=== PATIENT | female | born 1950 | race Caucasian/White ===

== ENCOUNTER 2020-03-02 16:58 | Emergency (ER) | payer MEDICARE, MEDICAID ==
[2020-03-02] MEDS ORDERED: Bacitracin Oint 1 GM U/D Packet TOP ONE (17:53)
[2020-03-02] MEDS ORDERED: Diphtheria,Pertussis(Acell),Tetanus Vaccine 0.5 ML SDV IM ONE (17:53)
[2020-03-02] MEDS ORDERED: Lidocaine 1% 30 ML SDV INJECT ONE (17:53)
--- NOTE | 2020-03-02 18:15 | EDM.PDOC ---
ED HPI GENERAL MEDICAL PROBLEM - General Chief Complaint: Laceration Stated Complaint: RIGHT HAND AND INDEX FINGER CUT Time Seen by Provider: 03/02/20 17:45 Source of Information: Reports: Patient History Limitations: Reports: No Limitations - History of Present Illness INITIAL COMMENTS - FREE TEXT/NARRATIVE: This 70 yo female patient reports to the ED with 3 lacerations to her right hand 2nd finger. The patient reports she fell into her walk in closet this morning at about 0730. The patient dressed the wounds, but they have continued to bleed throughout the day. The patient reports she does not remember when her last tetanus shot was. Onset: Today Onset Date: 03/02/20 Onset Time: 07:30 Duration: Constant Location: Reports: Upper Extremity, Right Quality: Reports: Ache Severity: Moderate Improves with: Reports: None Worsens with: Reports: None Context: Reports: Other Associated Symptoms: Reports: No Other Symptoms Right Hand Pain Score (Numeric/FACES): 5 - Related Data Allergies Allergy/AdvReac Type Severity Reaction Status Date / Time No Known Allergies Allergy Verified 03/02/20 17:29 Home Meds: Home Meds Gabapentin [Neurontin] 600 mg PO BID 03/02/20 [History] Losartan [Cozaar] 25 mg PO DAILY 03/02/20 [History] metFORMIN [Glucophage] 850 mg PO BIDMEALS 03/02/20 [History] traZODone HCl [Trazodone HCl] 50 mg PO ASDIRECTED 03/02/20 [History] Past Medical History Cardiovascular History: Reports: CAD Neurological History: Reports: Other (See Below) Other Neuro History: restless legs - Past Surgical History Musculoskeletal Surgical History: Reports: Hip Replacement Social & Family History - Tobacco Use Smoking Status *Q: Never Smoker - Caffeine Use Caffeine Use: Reports: Coffee - Recreational Drug Use Recreational Drug Use: No ED ROS GENERAL - Review of Systems Review Of Systems: Comprehensive ROS is negative, except as noted in HPI. ED EXAM, SKIN/RASH Exam: See Below Exam Limited By: No Limitations General Appearance: Alert, WD/WN, No Apparent Distress Eye Exam: Bilateral Eye: EOMI, Normal Inspection, PERRL Ears: Normal External Exam, Hearing Grossly Normal Nose: Normal Inspection, Normal Mucosa, No Blood Throat/Mouth: Normal Lips, Normal Teeth, Normal Voice Head: Atraumatic, Normocephalic Neck: Full Range of Motion Respiratory/Chest: No Respiratory Distress, Lungs Clear, Normal Breath Sounds, No Accessory Muscle Use, Chest Non-Tender Cardiovascular: Normal Peripheral Pulses, Regular Rate, Rhythm, No Edema, No Gallop, No JVD, No Murmur, No Rub (Female) Exam: Deferred Rectal (Female) Exam: Deferred Neurological: Alert, Oriented, CN II-XII Intact, Normal Cognition, Normal Gait, Normal Reflexes, No Motor/Sensory Deficits Psychiatric: Normal Affect, Normal Mood Skin: Wound/Incision (right 2nd finger laceration) Location, Skin: Upper Extremity, Right Characteristics: Linear Lymphatic: No Adenopathy ED SKIN PROCEDURES - Laceration/Wound Repair Right Proximal Digit - 2nd (Index) Appearance: Subcutaneous Distal NVT: Neuro & Vascular Intact Anesthetic Type: Local Local Anesthesia - Lidocaine (Xylocaine): 1% Plain Local Anesthetic Volume: 2cc Skin Prep: Chlorhexidine (Hibiciens) Exploration/Debridement/Repair: Wound Explored, In a Bloodless Field, No Foreign Material Found Closed with: Sutures Lac/Wound length In cm: 1.5 Suture Size: 4-0 # of Sutures: 4 Suture Type: Prolene, Interrupted, Simple Drain Placement: No Sterile Dressing Applied: Nurse Tetanus Status Addressed: Yes Complications: No Course - Vital Signs Last Recorded V/S: Last Vital Signs Temp 36.3 C 03/02/20 17:24 Pulse 95 03/02/20 17:24 Resp 14 03/02/20 17:24 BP 153/90 H 03/02/20 17:24 Pulse Ox 100 03/02/20 17:24 - Orders/Labs/Meds Orders: Active Orders 24 hr Category Date Time Status Vaccines to be Administered [RC] PER UNIT ROUTINE Care 03/02/20 17:53 Active Meds: Medications Discontinued Medications Generic Name Dose Route Start Last Admin Trade Name Freq PRN Reason Stop Dose Admin Bacitracin 1 dose 03/02/20 17:53 Bacitracin Oint 1 Gm TOP 03/02/20 17:54 ONETIME ONE Diphtheria/Tetanus/Acell Pertussis 0.5 ml 03/02/20 17:53 Adacel IM 03/02/20 17:54 .ONCE ONE Lidocaine HCl 30 ml 03/02/20 17:53 Xylocaine-Mpf 1% INJECT 03/02/20 17:54 ONETIME ONE Departure - Departure Time of Disposition: 18:12 Disposition: Home, Self-Care 01 Condition: Fair Clinical Impression: Laceration of right index finger w/o foreign body w/o damage to nail Qualifiers: Encounter type: initial encounter Qualified Code(s): S61.210A - Laceration without foreign body of right index finger without damage to nail, initial encounter - Discharge Information *PRESCRIPTION DRUG MONITORING PROGRAM REVIEWED*: Not Applicable *COPY OF PRESCRIPTION DRUG MONITORING REPORT IN PATIENT JAILENE: Not Applicable Instructions: Sutures, Miriam, or Adhesive Wound Closure, [id number], Laceration Care, Adult, [id number] Care Plan Goals: The patient was advised of the examination results during the visit. The patient's laceration margins were well approximated during the visit. The patient was encouraged to keep the wound clean and dry over the next 48 hours. The patient should have the sutures removed in 10-14 days. If the patient has any additional symptoms or concerns, the patient should either return to the emergency department or visit her primary care facility. Sepsis Event Note (ED) - Evaluation Sepsis Screening Result: No Definite Risk - Focused Exam Vital Signs: Vital Signs Temp Pulse Resp BP Pulse Ox 03/02/20 17:24 36.3 C 95 14 153/90 H 100 - My Orders Last 24 Hours: My Active Orders 03/02/20 17:53 Vaccines to be Administered [RC] PER UNIT ROUTINE - Assessment/Plan Last 24 Hours: My Active Orders 03/02/20 17:53 Vaccines to be Administered [RC] PER UNIT ROUTINE
== END 2020-03-02 18:32 | disposition home or self-care (01) ==
LOC: DL.ED 16:58
DX: S61.210A Laceration without foreign body of right index finger without damage to nail, initial encounter (principal); I25.10 Atherosclerotic heart disease of native coronary artery without angina pectoris; Z79.899 Other long term (current) drug therapy; Z23 Encounter for immunization; W26.8XXA Contact with other sharp object(s), not elsewhere classified, initial encounter
CPT/HCPCS: 12001; 90471; 90715; 99282; J2001

== ENCOUNTER 2020-08-28 08:09 | Emergency (ER) | payer MEDICARE, MEDICAID ==
--- NOTE | 2020-08-28 08:17 | EDM.PDOC ---
ED HPI GENERAL MEDICAL PROBLEM - General Chief Complaint: Lower Extremity Injury/Pain Stated Complaint: FALL, LOWER EXTREMITY INJURY Time Seen by Provider: 08/28/20 08:13 Source of Information: Reports: Patient, Old Records, RN, RN Notes Reviewed History Limitations: Reports: No Limitations - History of Present Illness INITIAL COMMENTS - FREE TEXT/NARRATIVE: Pt arrives from home by ambulance with report that she slipped an fell outside her home this morning and it her over an hour to get up and get back into her house. Once in the house she fell again and could not get up. Pt c/o pain to the Rt ankle. She states she bruised both her knees, and feels that her right prosthetic hip is "locked up". Denies head injury or LOC, neck pain, or any dizziness, syncope, or chest pain symptoms preceding the fall. Onset: Today, Sudden Duration: Constant Location: Reports: Lower Extremity, Left, Lower Extremity, Right Quality: Reports: Ache Severity: Severe Improves with: Reports: Immobilization Worsens with: Reports: Movement Associated Symptoms: Reports: No Other Symptoms - Related Data Allergies Allergy/AdvReac Type Severity Reaction Status Date / Time No Known Allergies Allergy Verified 08/28/20 08:38 Home Meds: Home Meds Gabapentin [Neurontin] 600 mg PO BID 03/02/20 [History] Losartan [Cozaar] 25 mg PO DAILY 03/02/20 [History] metFORMIN [Glucophage] 850 mg PO BIDMEALS 03/02/20 [History] traZODone HCl [Trazodone HCl] 50 mg PO ASDIRECTED 03/02/20 [History] Past Medical History Cardiovascular History: Reports: CAD Neurological History: Reports: Other (See Below) Other Neuro History: restless legs - Past Surgical History Musculoskeletal Surgical History: Reports: Hip Replacement Social & Family History - Family History Family Medical History: No Pertinent Family History - Caffeine Use Caffeine Use: Reports: Coffee - Living Situation & Occupation Living situation: Reports: Alone Occupation: Retired Review of Systems - Review of Systems Review Of Systems: Comprehensive ROS is negative, except as noted in HPI. ED EXAM, GENERAL - Physical Exam Exam: See Below Exam Limited By: No Limitations General Appearance: Alert, WD/WN, No Apparent Distress, Obese Eye Exam: Bilateral Eye: Normal Inspection Nose: Normal Inspection, Normal Mucosa, No Blood Throat/Mouth: Normal Inspection, Normal Lips, Normal Oropharynx, Normal Voice, No Airway Compromise Head: Atraumatic, Normocephalic Neck: Normal Inspection, Supple, Non-Tender, Full Range of Motion Respiratory/Chest: No Respiratory Distress, Lungs Clear, No Accessory Muscle Use, Chest Non-Tender, Decreased Breath Sounds Cardiovascular: Regular Rate, Rhythm, No Edema GI/Abdominal: Normal Bowel Sounds, Soft, Non-Tender Back Exam: Normal Inspection Extremities: Normal Capillary Refill, Leg Pain (Rt ankle with no visible swelling, bruising, or deformity, and with full ROM.), Limited Range of Motion (Rt hip with tenderness, no visible swelling, redness, or bruising.), Other (Superficial abrasions and contusion to B/L anterior knees.). No: Joint Swelling Neurological: Alert, Oriented, Normal Cognition, No Motor/Sensory Deficits Psychiatric: Normal Mood Skin Exam: Warm, Dry, Normal Color Course - Vital Signs Last Recorded V/S: Last Vital Signs Temp 97.1 F 08/28/20 08:26 Pulse 97 08/28/20 08:26 Resp 20 08/28/20 08:26 BP 148/87 H 08/28/20 08:26 Pulse Ox 100 08/28/20 08:26 - Orders/Labs/Meds Orders: Active Orders 24 hr Category Date Time Status Ja Bandage [RC] ONETIME Care 08/28/20 09:25 Active CULTURE URINE [RM] Stat Lab 08/28/20 09:18 Received Labs: Laboratory Tests 08/28/20 08/28/20 08/28/20 Range/Units 08:39 08:39 09:18 WBC 8.3 (5.0-10.0) 10^3/uL RBC 4.49 (4.2-5.4) 10^6/uL Hgb 14.5 (12.0-16.0) g/dL Hct 41.9 (37.0-47.0) % MCV 93.3 (80-100) fL MCH 32.3 (27.0-34.0) pg MCHC 34.6 (33.0-35.0) g/dL Plt Count 208 (150-450) 10^3/uL Neut % (Auto) 84.4 H (42.2-75.2) % Lymph % (Auto) 7.2 L (20.5-50.1) % [place] % (Auto) 7.9 (2-8) % Eos % (Auto) 0.4 L (1.0-3.0) % Baso % (Auto) 0.1 (0.0-1.0) % Sodium 143 (136-145) mmol/L Potassium 3.7 (3.5-5.1) mmol/L Chloride 102 (98-107) mmol/L Carbon Dioxide 29 (21-32) mmol/L Anion Gap 15.7 H (7-13) mEq/L BUN 14 (7-18) mg/dL Creatinine 0.95 (0.55-1.02) mg/dL Est Cr Clr Drug Dosing 42.34 mL/min Estimated GFR (MDRD) 58 BUN/Creatinine Ratio 14.7 (No establ ref range) Glucose 144 H (74-99) mg/dL Calcium 9.1 (8.5-10.1) mg/dL Total Bilirubin 0.4 (0.2-1.0) mg/dL AST 18 (15-37) U/L ALT 23 (14-59) U/L Alkaline Phosphatase 97 (46-116) U/L Total Protein 6.6 (6.4-8.2) g/dL Albumin 4.0 (3.4-5.0) g/dL Globulin 2.6 Albumin/Globulin Ratio 1.5 Urine Color Yellow (YELLOW) Urine Appearance Slightly cloudy (CLEAR) Urine pH 7.5 (5.0-9.0) Ur Specific [place] 1.020 (1.005-1.030) Urine Protein 30 H (NEGATIVE) Urine Glucose (UA) Negative (NEGATIVE) Urine Ketones Negative (NEGATIVE) Urine Occult Blood Trace-intact H (NEGATIVE) Urine Nitrite Negative (NEGATIVE) Urine Bilirubin Negative (NEGATIVE) Urine Urobilinogen 0.2 (0.2-1.0) mg/dL Ur Leukocyte Esterase Small H (NEGATIVE) Urine RBC 0-5 /HPF Urine WBC 0-5 (0-5/HPF) /HPF Ur Epithelial Cells Few (NOT SEEN) /HPF Urine Bacteria Few (0-FEW/HPF) /HPF Urine Other See note Meds: Medications Discontinued Medications Generic Name Dose Route Start Last Admin Trade Name Freq PRN Reason Stop Dose Admin Bacitracin 1 dose 08/28/20 08:26 08/28/20 08:49 Bacitracin Oint 1 Gm TOP 08/28/20 08:27 1 dose ONETIME ONE Administration - Radiology Interpretation Free Text/Narrative:: [facility] Final Radiology Report Call: [phone] assistance Online chat: [email or web address] Name: [email or web address] WARD Age: 70Years F Date: 08/28/2020 SSN: -- : [id number] Study: CR ANKLE MIN 3V RT Requesting Physician: MEAGAN GHOSH Images: 3 Addl Studies: Provided Clinical History: Fall x2, injury to Rt hip, B/L knees, Rt ankle Contrast: Contrast Medium: Contrast Amount: Contrast Method: CONFIDENTIALITY STATEMENT This report is intended only for use by the referring physician, and only in accordance with law. If you received this in error, call [phone]. Page 1 of 1 PROCEDURE INFORMATION: Exam: XR Right Ankle Exam date and time: 08/28/2020 8:52 AM Age: 70 years old Clinical indication: Injury or trauma; Fall; Swelling (edema); Ankle; Right; Additional info: Fall x2, injury to RT hip, b/l knees, RT ankle TECHNIQUE: Imaging protocol: XR Right ankle. Views: 3 or more views. COMPARISON: CR Ankle Min 3V Rt 08/02/2020 9:08 AM FINDINGS: Bones/joints: Small plantar calcaneal spur. Soft tissues: Soft tissue swelling about the right ankle. IMPRESSION: Soft tissue swelling about the right ankle. No fracture identified. Thank you for allowing us to participate in the care of your patient. Dictated and Authenticated by: Génesis Sharma MD 08/28/2020 9:24 AM Central Time ([place] & [place]) IMPRESSION: No acute findings in the pelvis and right hip. Right FARZAD. Thank you for allowing us to participate in the care of your patient. Dictated and Authenticated by: Génesis Sharma MD 08/28/2020 9:25 AM Central Time ([place] & [place]) IMPRESSION: No acute findings. Mild degenerative arthritis right knee with old Nuno Schlatter. IMPRESSION: No acute findings. Advanced degenerative arthritis left knee. PROCEDURE INFORMATION: Exam: XR Right Shoulder Exam date and time: 08/28/2020 9:03 AM Age: 70 years old Clinical indication: Pain; Shoulder; Right; Additional info: Fall, RT shoulder pain TECHNIQUE: Imaging protocol: XR Right shoulder. Views: 2 or more views. COMPARISON: No relevant prior studies available. FINDINGS: Bones/joints: Resection of the distal right clavicle. Acromioplasty. Marked narrowing of the acromial humeral space consistent with chronic rotator cuff arthropathy. Degenerative arthritis in the glenohumeral joint. Soft tissues: Normal. IMPRESSION: 1. No acute findings. 2. Acromioplasty, distal clavicle resection, glenohumeral degenerative arthritis and chronic rotator cuff arthropathy. Thank you for allowing us to participate in the care of your patient. Dictated and Authenticated by: Génesis Sharma MD - Re-Assessments/Exams Free Text/Narrative Re-Assessment/Exam: 08/28/20 09:29 No serious injuries, no acute lab abnormalities that would increase fall risk. Plan to d/c pt home. Pt declines pain medication. She has a walker at home, and does not feel that she can use crutches. Departure - Departure Time of Disposition: 09:31 Disposition: Home, Self-Care 01 Condition: Fair Clinical Impression: Contusion, multiple sites, Abrasion of both knees Right ankle sprain Qualifiers: Encounter type: initial encounter Involved ligament of ankle: unspecified ligament Qualified Code(s): S93.401A - Sprain of unspecified ligament of right ankle, initial encounter Fall as cause of accidental injury at home as place of occurrence Qualifiers: Encounter type: initial encounter Qualified Code(s): W19.XXXA - Unspecified fall, initial encounter - Discharge Information *PRESCRIPTION DRUG MONITORING PROGRAM REVIEWED*: Not Applicable *COPY OF PRESCRIPTION DRUG MONITORING REPORT IN PATIENT JAILENE: Not Applicable Instructions: Ankle Sprain, [id number], Abrasion, [id number] Forms: ED Department Discharge Additional Instructions: Use your walker for stability. Activity as tolerated. Use Tylenol (Acetaminophen) or Ibuprofen (Motrin/Advil) as needed for pain. Follow directions on label for dosing and precautions. Follow up in clinic if needed. Sepsis Event Note (ED) - Focused Exam Vital Signs: Vital Signs Temp Pulse Resp BP Pulse Ox 08/28/20 08:26 97.1 F 97 20 148/87 H 100 - My Orders Last 24 Hours: My Active Orders 08/28/20 09:18 CULTURE URINE [RM] Stat 08/28/20 09:25 Ja Bandage [RC] ONETIME - Assessment/Plan Last 24 Hours: My Active Orders 08/28/20 09:18 CULTURE URINE [RM] Stat 08/28/20 09:25 Ja Bandage [RC] ONETIME
[2020-08-28] MEDS ORDERED: Bacitracin Oint 1 GM U/D Packet TOP ONE (08:26)
[2020-08-28 09:04] LABS: ANION GAP 15.7 mEq/L (7-13)
--- NOTE | 2020-08-28 09:24 | CR ---
PROCEDURE INFORMATION: Exam: XR Right Ankle Exam date and time: 08/28/2020 8:52 AM Age: 70 years old Clinical indication: Injury or trauma; Fall; Swelling (edema); Ankle; Right; Additional info: Fall x2, injury to RT hip, b/l knees, RT ankle TECHNIQUE: Imaging protocol: XR Right ankle. Views: 3 or more views. COMPARISON: CR Ankle Min 3V Rt 08/02/2020 9:08 AM FINDINGS: Bones/joints: Small plantar calcaneal spur. Soft tissues: Soft tissue swelling about the right ankle. IMPRESSION: Soft tissue swelling about the right ankle. No fracture identified.
--- NOTE | 2020-08-28 09:24 | CR ---
PROCEDURE INFORMATION: Exam: XR Right Shoulder Exam date and time: 08/28/2020 9:03 AM Age: 70 years old Clinical indication: Pain; Shoulder; Right; Additional info: Fall, RT shoulder pain TECHNIQUE: Imaging protocol: XR Right shoulder. Views: 2 or more views. COMPARISON: No relevant prior studies available. FINDINGS: Bones/joints: Resection of the distal right clavicle. Acromioplasty. Marked narrowing of the acromial humeral space consistent with chronic rotator cuff arthropathy. Degenerative arthritis in the glenohumeral joint. Soft tissues: Normal. IMPRESSION: 1. No acute findings. 2. Acromioplasty, distal clavicle resection, glenohumeral degenerative arthritis and chronic rotator cuff arthropathy.
--- NOTE | 2020-08-28 09:26 | CR ---
PROCEDURE INFORMATION: Exam: XR Right Hip with Pelvis when Performed Exam date and time: 08/28/2020 8:54 AM Age: 70 years old Clinical indication: Injury or trauma; Fall; Blunt trauma (contusions or hematomas); Right; Hip; Prior surgery; Surgery date: 6+ months; Additional info: Fall x2, injury to RT hip, b/l knees, RT ankle TECHNIQUE: Imaging protocol: XR Right hip with pelvis when performed. Views: 2 or 3 views. COMPARISON: CR Hip Min 2V or 3V Rt 05/21/2018 2:27 PM FINDINGS: Bones/joints: Stable right hip arthroplasty with focal lucency in the supra-acetabular ilium. The components otherwise appear well seated. No fracture identified. Degenerative arthritis lower lumbar spine. Soft tissues: Unremarkable. IMPRESSION: No acute findings in the pelvis and right hip. Right FARZAD.
--- NOTE | 2020-08-28 09:27 | CR ---
PROCEDURE INFORMATION: Exam: XR Left Knee Exam date and time: 08/28/2020 9:00 AM Age: 70 years old Clinical indication: Injury or trauma; Fall; Blunt trauma; Knee; Bilateral; Additional info: Fall x2, injury to RT hip, b/l knees, RT ankle TECHNIQUE: Imaging protocol: XR Left knee. Views: 3 views. COMPARISON: No relevant prior studies available. FINDINGS: Bones/joints: Degenerative arthritis left knee with tricompartment joint space narrowing and marginal osteophyte formation, most marked involving the patellofemoral. Fragment of heterotopic ossification lateral to the left patellofemoral joint. Soft tissues: Normal. IMPRESSION: No acute findings. Advanced degenerative arthritis left knee.
--- NOTE | 2020-08-28 09:27 | CR ---
PROCEDURE INFORMATION: Exam: XR Right Knee Exam date and time: 08/28/2020 8:57 AM Age: 70 years old Clinical indication: Injury or trauma; Fall; Blunt trauma; Knee; Bilateral; Additional info: Fall x2, injury to RT hip, b/l knees, RT ankle TECHNIQUE: Imaging protocol: XR Right knee. Views: 3 views. COMPARISON: No relevant prior studies available. FINDINGS: Bones/joints: Narrowed medial compartment. Tiny tricompartment marginal osteophytes. Old Nuno-Schlatter. Soft tissues: Normal. IMPRESSION: No acute findings. Mild degenerative arthritis right knee with old Radford Schlatter.
== END 2020-08-28 10:30 | disposition home or self-care (01) ==
LOC: DL.ED 08:09
DX: S93.401A Sprain of unspecified ligament of right ankle, initial encounter (principal); S80.02XA Contusion of left knee, initial encounter; S80.01XA Contusion of right knee, initial encounter; I25.10 Atherosclerotic heart disease of native coronary artery without angina pectoris; Z79.899 Other long term (current) drug therapy; W01.0XXA Fall on same level from slipping, tripping and stumbling without subsequent striking against object, initial encounter; Y92.009 Unspecified place in unspecified non-institutional (private) residence as the place of occurrence of the external cause
CPT/HCPCS: 36415; 73030-RT; 73562-LT; 73562-RT; 73610-RT; 80053; 81001; 85025; 87086; 99283; 99284-25

== ENCOUNTER 2021-02-17 07:16 | Emergency (ER) | payer MEDICARE, MEDICAID ==
--- NOTE | 2021-02-17 07:40 | EDM.PDOC ---
ED HPI GENERAL MEDICAL PROBLEM - General Stated Complaint: [id number] FELL ON RIGHT SIDE AND CANT SIT OR STAND Time Seen by Provider: 02/17/21 07:29 Source of Information: Reports: Patient, RN, RN Notes Reviewed History Limitations: Reports: No Limitations - History of Present Illness INITIAL COMMENTS - FREE TEXT/NARRATIVE: Krzysztof is a 70 y/o female who presents to the ED via personal vehicle with complaints of right hip pain. The patient reports she fell onto her right hip yesterday and is not unable to ambulate or sit without pain. The patient denies striking her head and did not lose consciousness. She denies loss of motor or sensory function to the extremity. The patient reports a history of right hip replacement and is concerned she damaged the hardware. She has taken one dose of Aleve this morning which has offered her minimal improvement in pain. Right Hip Pain Score (Numeric/FACES): 4 - Related Data Allergies Allergy/AdvReac Type Severity Reaction Status Date / Time No Known Allergies Allergy Verified 02/17/21 07:32 Home Meds: Home Meds Gabapentin [Neurontin] 600 mg PO BID 03/02/20 [History] Losartan [Cozaar] 25 mg PO DAILY 03/02/20 [History] metFORMIN [Glucophage] 850 mg PO BIDMEALS 03/02/20 [History] traZODone HCl [Trazodone HCl] 50 mg PO ASDIRECTED 03/02/20 [History] Past Medical History Cardiovascular History: Reports: CAD Neurological History: Reports: Other (See Below) Other Neuro History: restless legs Endocrine/Metabolic History: Reports: Diabetes, Type II - Past Surgical History Musculoskeletal Surgical History: Reports: Hip Replacement Social & Family History - Family History Family Medical History: No Pertinent Family History - Caffeine Use Caffeine Use: Reports: Coffee - Living Situation & Occupation Living situation: Reports: Alone Occupation: Retired Review of Systems - Review of Systems Review Of Systems: Comprehensive ROS is negative, except as noted in HPI. ED EXAM, GENERAL - Physical Exam Exam: See Below Exam Limited By: No Limitations General Appearance: Alert, No Apparent Distress Eye Exam: Bilateral Eye: EOMI, Normal Inspection, PERRL (3mm) Ears: Normal External Exam, Hearing Loss Nose: Normal Inspection, Normal Mucosa, No Blood Throat/Mouth: Normal Inspection, Normal Lips, Normal Teeth, Normal Gums, Normal Oropharynx, Normal Voice, No Airway Compromise Head: Atraumatic, Normocephalic Neck: Normal Inspection, Supple, Non-Tender, Full Range of Motion Respiratory/Chest: No Respiratory Distress, Lungs Clear, Normal Breath Sounds, No Accessory Muscle Use, Chest Non-Tender Cardiovascular: Normal Peripheral Pulses, Regular Rate, Rhythm, No Edema, No Gallop, No JVD, No Murmur, No Rub Peripheral Pulses: 2+: Radial (L), Radial (R) GI/Abdominal: Normal Bowel Sounds, Soft, Non-Tender, No Distention, No Abnormal Bruit, No Mass (Female) Exam: Deferred Rectal (Female) Exam: Deferred Back Exam: Normal Inspection, Full Range of Motion Extremities: No Pedal Edema, Normal Capillary Refill, Leg Pain (Right hip pain), Limited Range of Motion (To right lower extremity). No: Increased Warmth, Pallor, Redness Neurological: Alert, Oriented, CN II-XII Intact, Normal Cognition, No Motor/Sensory Deficits, Abnormal Gait (Hunched gait with walker) Psychiatric: Normal Affect, Normal Mood Skin Exam: Warm, Dry, Intact, Normal Color, No Rash. No: Cyanosis, Ecchymosis, Erythema, Increased Warmth, Jaundice, Mottled, Pallor, Petechiae Course - Vital Signs Last Recorded V/S: Last Vital Signs Temp 97.6 F 02/17/21 07:30 Pulse 75 02/17/21 07:30 Resp 18 02/17/21 07:30 BP 139/75 02/17/21 07:30 Pulse Ox 100 02/17/21 07:30 - Radiology Interpretation Free Text/Narrative:: [facility] Final Radiology Report Call: [phone] assistance Online chat: [email or web address] Name: KRZYSZTOF WARD Age: 70Years F Date: 02/17/2021 SSN: -- : [id number] Study: CR HIP MIN 2V OR 3V W PELVIS RT Requesting Physician: Selena Gardner Images: 3 Addl Studies: Provided Clinical History: Fall onto hip yesterday; Pain with walking/sitting Contrast: Contrast Medium: Contrast Amount: Contrast Method: CONFIDENTIALITY STATEMENT This report is intended only for use by the referring physician, and only in accordance with law. If you received this in error, call [phone]. Page 1 of 1 PROCEDURE INFORMATION: Exam: XR Right Hip Exam date and time: 02/17/2021 7:43 AM Age: 70 years old Clinical indication: Injury or trauma; Fall; Blunt trauma (contusions or hematomas); Right; Hip; Injury date: 02-16-21; Prior surgery; Surgery date: 6+ months; Additional info: Fall onto hip yesterday; Pain with walking/sitting TECHNIQUE: Imaging protocol: XR Right hip. Views: 2 or 3 views hip with pelvis when performed. COMPARISON: CR Hip Min 2V or 3V w Pelvis Rt 08/28/2020 8:54 AM FINDINGS: Tubes, catheters and devices: Hardware is intact without evidence of migration or loosening. Bones/joints: Status post right hip arthroplasty. Soft tissues: Unremarkable. IMPRESSION: No definite acute fractures. Thank you for allowing us to participate in the care of your patient. Dictated and Authenticated by: Edy Pompa MD 02/17/2021 9:03 AM Central Time ([place] & [place]) - Re-Assessments/Exams Free Text/Narrative Re-Assessment/Exam: 02/17/21 Xray of right hip and pelvis obtained. Patient rates pain at a 3 and does not want pain medication. Findings of examination and imaging reviewed with patient. Discussed supportive cares for right hip pain. Red flag signs and symptoms which would warrant reevaluation reviewed. Patient verbalized understanding and agreement with the plan of care. Departure - Departure Time of Disposition: 09:14 Disposition: Home, Self-Care 01 Condition: Good Clinical Impression: Right hip pain, Fall from ground level - Discharge Information *PRESCRIPTION DRUG MONITORING PROGRAM REVIEWED*: Not Applicable *COPY OF PRESCRIPTION DRUG MONITORING REPORT IN PATIENT JAILENE: Not Applicable Instructions: Fall Prevention in the Home, Adult, [id number], Hip Pain Forms: ED Department Discharge Additional Instructions: 1.) You may take acetaminophen (Tylenol) 1000mg every six hours, as pain persists, in addition to the Naproxen. 2.) You may alternate heat and ice to the affected area, as swelling persists; 20 minutes on every hour. 3.) Follow up with primary care provider, or return to the emergency room, that worsens or does not improve within 7 days.
--- NOTE | 2021-02-17 09:04 | CR ---
PROCEDURE INFORMATION: Exam: XR Right Hip Exam date and time: 02/17/2021 7:43 AM Age: 70 years old Clinical indication: Injury or trauma; Fall; Blunt trauma (contusions or hematomas); Right; Hip; Injury date: 02-16-21; Prior surgery; Surgery date: 6+ months; Additional info: Fall onto hip yesterday; Pain with walking/sitting TECHNIQUE: Imaging protocol: XR Right hip. Views: 2 or 3 views hip with pelvis when performed. COMPARISON: CR Hip Min 2V or 3V w Pelvis Rt 08/28/2020 8:54 AM FINDINGS: Tubes, catheters and devices: Hardware is intact without evidence of migration or loosening. Bones/joints: Status post right hip arthroplasty. Soft tissues: Unremarkable. IMPRESSION: No definite acute fractures.
== END 2021-02-17 09:24 | disposition home or self-care (01) ==
LOC: DL.ED 07:16
DX: M25.551 Pain in right hip (principal); I25.10 Atherosclerotic heart disease of native coronary artery without angina pectoris; E11.9 Type 2 diabetes mellitus without complications; Z79.84 Long term (current) use of oral hypoglycemic drugs; Z79.899 Other long term (current) drug therapy; W18.39XA Other fall on same level, initial encounter
CPT/HCPCS: 99283-25

== ENCOUNTER 2021-04-16 08:45 | Emergency (ER) | payer MEDICARE, MEDICAID ==
--- NOTE | 2021-04-16 09:01 | EDM.PDOC ---
"ED HPI GENERAL MEDICAL PROBLEM - General Chief Complaint: Neurological Problem Stated Complaint: POSSIBLE STROKE [id number] Time Seen by Provider: 04/16/21 08:50 Source of Information: Reports: Patient, Provider (Care staff), RN, RN Notes Reviewed History Limitations: Reports: Other (Confusion) - History of Present Illness INITIAL COMMENTS - FREE TEXT/NARRATIVE: Krzysztof is a 71 y/o female who presents to the ED via personal vehicle with complaints of confusion, per care staff. The patient lives alone and has care staff assist with shopping, cooking, and light cleaning; she reports the patient has been in [place] for the last two weeks and returned home two nights ago. She reports the patient's son yesterday at some time, so she is uncertain of the patient's LKW. She reports the patient was sitting in her recliner this morning unsure of how to operate her cell phone and remote, which is not the patient's baseline. Additionally, she feels her speech is slurred and her gait is slow. Headache Pain Score (Numeric/FACES): 6 - Related Data Allergies Allergy/AdvReac Type Severity Reaction Status Date / Time No Known Allergies Allergy Verified 04/16/21 10:57 Home Meds: Home Meds Gabapentin [Neurontin] 600 mg PO BID 03/02/20 [History] Losartan [Cozaar] 25 mg PO DAILY 03/02/20 [History] metFORMIN [Glucophage] 850 mg PO BIDMEALS 03/02/20 [History] traZODone HCl [Trazodone HCl] 50 mg PO ASDIRECTED 03/02/20 [History] Past Medical History HEENT History: Reports: Impaired Vision Cardiovascular History: Reports: CAD Respiratory History: Reports: None Gastrointestinal History: Reports: None Genitourinary History: Reports: None LOG INSPECTOR History: Reports: None Neurological History: Reports: Other (See Below) Other Neuro History: restless legs Psychiatric History: Reports: None Endocrine/Metabolic History: Reports: Diabetes, Type II Hematologic History: Reports: None Immunologic History: Reports: None Oncologic (Cancer) History: Reports: None Dermatologic History: Reports: None - Infectious Disease History Infectious Disease History: Reports: None - Past Surgical History Head Surgeries/Procedures: Reports: None Musculoskeletal Surgical History: Reports: Hip Replacement Social & Family History - Family History Family Medical History: No Pertinent Family History - Tobacco Use Tobacco Use Status *Q: Never Tobacco User - Caffeine Use Caffeine Use: Reports: Coffee - Recreational Drug Use Drug Use in Last 12 Months: No - Living Situation & Occupation Living situation: Reports: Alone Occupation: Retired ED ROS GENERAL - Review of Systems Review Of Systems: Comprehensive ROS is negative, except as noted in HPI. ED EXAM, NEURO - Physical Exam Exam: See Below Exam Limited By: No Limitations General Appearance: Alert, No Apparent Distress Eye Exam: Bilateral Eye: EOMI, Normal Inspection, PERRL (3mm) Ears: Normal External Exam, Normal Canal, Hearing Grossly Normal, Normal TMs Nose: Normal Inspection, Normal Mucosa, No Blood Throat/Mouth: Normal Voice, No Airway Compromise. No: Normal Oropharynx (Dry mucous membranes) Head Exam: Atraumatic, Normocephalic Neck: Normal Inspection, Supple, Non-Tender, Full Range of Motion. No: Lymphadenopathy (L), Lymphadenopathy (R) Respiratory/Chest: No Respiratory Distress, Lungs Clear, Normal Breath Sounds, No Accessory Muscle Use, Chest Non-Tender Cardiovascular: Normal Peripheral Pulses, No Edema, No Gallop, No JVD, No Murmur, No Rub, Tachycardia GI/Abdominal: Normal Bowel Sounds, Soft, Non-Tender, No Distention, No Abnormal Bruit, No Mass, Pelvis Stable (Female) Exam: Deferred Rectal (Female) Exam: Deferred Neurological: Alert, Normal Dorsiflexion, Normal Plantar Flexion, Abnormal Gait (Slow, shufflin gait), Withdraws to Pain, Straight Leg Raise (L), Straight Leg Raise (R). No: Abnormal Finger to Nose, Abnormal Sensation, Abnormal Light Touch, Abnormal Motor, Abnormal Pin Prick, Abn 2 Pt Discrimination Back Exam: Normal Inspection, Full Range of Motion Extremities: Normal Inspection, Normal Range of Motion, Non-Tender, No Pedal Edema, Normal Capillary Refill Psychiatric: Normal Affect, Normal Mood Skin Exam: Warm, Dry, Intact, Normal Color, No Rash. No: Cyanosis, Ecchymosis, Erythema, Jaundice, Mottled, Pallor, Petechiae #1 Interpretation EKG Date: 04/16/21 Time: 09:11 Rhythm: Other (Sinus tachycardia) Rate (Beats/Min): 103 Clinton: LAD-Left Clinton Deviation P-Wave: Present QRS: Normal ST-T: Normal QT: Normal VA/PQ Interval: 0.154 Comparison: NA - No Prior EKG EKG Interpretation Comments: ST; LAD; No evidence of acute myocardial ischemia Course - Vital Signs Last Recorded V/S: Last Vital Signs Temp 98.4 F 04/16/21 09:04 Pulse 103 H 04/16/21 09:04 Resp 24 H 04/16/21 09:04 BP 112/84 04/16/21 09:04 Pulse Ox 94 L 04/16/21 09:04 - Orders/Labs/Meds Orders: Active Orders 24 hr Category Date Time Status CULTURE BLOOD [BC] Stat Lab 04/16/21 10:13 Received CULTURE URINE [RM] Stat Lab 04/16/21 09:33 Results Labs: Laboratory Tests 04/16/21 04/16/21 04/16/21 Range/Units 08:53 09:07 09:07 WBC 20.0 H (5.0-10.0) 10^3/uL RBC 4.52 (4.2-5.4) 10^6/uL Hgb 14.3 (12.0-16.0) g/dL Hct 41.8 (37.0-47.0) % MCV 92.5 (80-100) fL MCH 31.6 (27.0-34.0) pg MCHC 34.2 (33.0-35.0) g/dL Plt Count 213 (150-450) 10^3/uL Neut % (Auto) 88.7 H (42.2-75.2) % Lymph % (Auto) 4.0 L (20.5-50.1) % [place] % (Auto) 7.3 (2-8) % Eos % (Auto) 0.0 L (1.0-3.0) % Baso % (Auto) 0.0 (0.0-1.0) % Sodium 134 L (136-145) mmol/L Potassium 3.5 (3.5-5.1) mmol/L Chloride 96 L (98-107) mmol/L Carbon Dioxide 28 (21-32) mmol/L Anion Gap 13.5 H (7-13) mEq/L BUN 13 (7-18) mg/dL Creatinine 0.94 (0.55-1.02) mg/dL Est Cr Clr Drug Dosing TNP Estimated GFR (MDRD) 58 BUN/Creatinine Ratio 13.8 (No establ ref range) Glucose 168 H (70-99) mg/dL POC Glucose 171 H (70-99) mg/dL Lactic Acid (0.4-2.0) mmol/L Calcium 9.0 (8.5-10.1) mg/dL Magnesium 1.6 L (1.8-2.4) mg/dL Total Bilirubin 0.9 (0.2-1.0) mg/dL AST 28 (15-37) U/L ALT 30 (14-59) U/L Alkaline Phosphatase 84 (46-116) U/L Troponin I High Sens 7 (<=51) pg/mL C-Reactive Protein > 36.0 H (0.0-0.9) mg/dL B-Natriuretic Peptide 120 H (0-100) pg/ml Total Protein 6.3 L (6.4-8.2) g/dL Albumin 3.3 L (3.4-5.0) g/dL Globulin 3.0 Albumin/Globulin Ratio 1.10 Urine Color (YELLOW) Urine Appearance (CLEAR) Urine pH (5.0-9.0) Ur Specific [place] (1.005-1.030) Urine Protein (NEGATIVE) Urine Glucose (UA) (NEGATIVE) Urine Ketones (NEGATIVE) Urine Occult Blood (NEGATIVE) Urine Nitrite (NEGATIVE) Urine Bilirubin (NEGATIVE) Urine Urobilinogen (0.2-1.0) mg/dL Ur Leukocyte Esterase (NEGATIVE) Urine RBC (0-5) /HPF Urine WBC (0-5/HPF) /HPF Ur Epithelial Cells (NOT SEEN) /HPF Amorphous Sediment (NOT SEEN) /HPF Urine Bacteria (0-FEW/HPF) /HPF Urine Mucus (NOT SEEN) /LPF Urine Opiates Screen (NEGATIVE) Ur Oxycodone Screen (NEGATIVE) Urine Methadone Screen (NEGATIVE) Ur Barbiturates Screen (NEGATIVE) U Tricyclic Antidepress (NEGATIVE) Ur Phencyclidine Scrn (NEGATIVE) Ur Amphetamine Screen (NEGATIVE) U Methamphetamines Scrn (NEGATIVE) Urine MDMA Screen (NEGATIVE) U Benzodiazepines Scrn (NEGATIVE) Urine Cocaine Screen (NEGATIVE) U Marijuana (THC) Screen (NEGATIVE) Ethyl Alcohol < 3 (0) mg/dL 04/16/21 04/16/21 04/16/21 Range/Units 09:07 09:33 09:33 WBC (5.0-10.0) 10^3/uL RBC (4.2-5.4) 10^6/uL Hgb (12.0-16.0) g/dL Hct (37.0-47.0) % MCV (80-100) fL MCH (27.0-34.0) pg MCHC (33.0-35.0) g/dL Plt Count (150-450) 10^3/uL Neut % (Auto) (42.2-75.2) % Lymph % (Auto) (20.5-50.1) % [place] % (Auto) (2-8) % Eos % (Auto) (1.0-3.0) % Baso % (Auto) (0.0-1.0) % Sodium (136-145) mmol/L Potassium (3.5-5.1) mmol/L Chloride (98-107) mmol/L Carbon Dioxide (21-32) mmol/L Anion Gap (7-13) mEq/L BUN (7-18) mg/dL Creatinine (0.55-1.02) mg/dL Est Cr Clr Drug Dosing Estimated GFR (MDRD) BUN/Creatinine Ratio (No establ ref range) Glucose (70-99) mg/dL POC Glucose (70-99) mg/dL Lactic Acid 1.8 (0.4-2.0) mmol/L Calcium (8.5-10.1) mg/dL Magnesium (1.8-2.4) mg/dL Total Bilirubin (0.2-1.0) mg/dL AST (15-37) U/L ALT (14-59) U/L Alkaline Phosphatase (46-116) U/L Troponin I High Sens (<=51) pg/mL C-Reactive Protein (0.0-0.9) mg/dL B-Natriuretic Peptide (0-100) pg/ml Total Protein (6.4-8.2) g/dL Albumin (3.4-5.0) g/dL Globulin Albumin/Globulin Ratio Urine Color Dark yellow (YELLOW) Urine Appearance Slightly cloudy (CLEAR) Urine pH 6.0 (5.0-9.0) Ur Specific Fancy Gap >= 1.030 (1.005-1.030) Urine Protein 100 H (NEGATIVE) Urine Glucose (UA) Negative (NEGATIVE) Urine Ketones 15 H (NEGATIVE) Urine Occult Blood Negative (NEGATIVE) Urine Nitrite Negative (NEGATIVE) Urine Bilirubin Small H (NEGATIVE) Urine Urobilinogen 1.0 (0.2-1.0) mg/dL Ur Leukocyte Esterase Small H (NEGATIVE) Urine RBC 0-5 (0-5) /HPF Urine WBC 50-75 H (0-5/HPF) /HPF Ur Epithelial Cells Moderate H (NOT SEEN) /HPF Amorphous Sediment Few (NOT SEEN) /HPF Urine Bacteria Many H (0-FEW/HPF) /HPF Urine Mucus Few H (NOT SEEN) /LPF Urine Opiates Screen Negative (NEGATIVE) Ur Oxycodone Screen Negative (NEGATIVE) Urine Methadone Screen Negative (NEGATIVE) Ur Barbiturates Screen Negative (NEGATIVE) U Tricyclic Antidepress Negative (NEGATIVE) Ur Phencyclidine Scrn Negative (NEGATIVE) Ur Amphetamine Screen Negative (NEGATIVE) U Methamphetamines Scrn Negative (NEGATIVE) Urine MDMA Screen Negative (NEGATIVE) U Benzodiazepines Scrn Negative (NEGATIVE) Urine Cocaine Screen Negative (NEGATIVE) U Marijuana (THC) Screen Negative (NEGATIVE) Ethyl Alcohol (0) mg/dL Meds: Medications Discontinued Medications Generic Name Dose Route Start Last Admin Trade Name Haq PRN Reason Stop Dose Admin Acetaminophen 1,000 mg 04/16/21 10:14 04/16/21 10:20 Acetaminophen 500 Mg Tab PO 04/16/21 10:15 1,000 mg ONETIME ONE Administration Piperacillin Sod/Tazobactam 100 mls @ 200 mls/hr 04/16/21 10:24 04/16/21 11:06 Sod 3.375 gm/ Sodium Chloride IV 04/16/21 10:53 200 mls/hr ONETIME ONE Administration Sodium Chloride 1,000 mls @ 250 mls/hr 04/16/21 10:25 04/16/21 11:04 Normal Saline IV 04/16/21 14:24 250 mls/hr .BOLUS ONE Administration Iopamidol 100 ml 04/16/21 10:24 04/16/21 10:56 Iopamidol 612 Mg/Ml 100 Ml Bottle IVPUSH 04/16/21 10:25 100 ml ONETIME ONE Administration - Radiology Interpretation Free Text/Narrative:: [facility] Final Radiology Report Call: [phone] assistance Online chat: [email or web address] Name: KRZYSZTOF WARD Age: 71Years F Date: 04/16/2021 SSN: -- : [id number] Study: CT HEAD WO CONT Requesting Physician: Selena Gardner Images: [id number] Addl Studies: Provided Clinical History: Stroke protocol Contrast: Without Contrast Medium: Contrast Amount: Contrast Method: Page 1 of 2 PROCEDURE INFORMATION: Exam: CT Head Without Contrast Exam date and time: 04/16/2021 8:56 AM Age: 71 years old Clinical indication: Altered mental status/memory loss; Confusion or disorientation; Additional info: Stroke protocol TECHNIQUE: Imaging protocol: Computed tomography of the head without contrast. Radiation optimization: All CT scans at this facility use at least one of these dose optimization techniques: automated exposure control; mA and/or kV adjustment per patient size (includes targeted exams where dose is matched to clinical indication); or iterative reconstruction. Other technique: STROKE PROTOCOL was implemented. COMPARISON: CT Head wo Cont 12/21/2013 9:49 AM FINDINGS: Brain: Stable cerebellar atrophy. 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 Stable generalized atrophy. No intra-axial or extra-axial mass or hemorrhage. No midline shift. No sulcal effacement. Cerebral ventricles: No ventriculomegaly. Paranasal sinuses: Visualized sinuses are unremarkable. No fluid levels. Mastoid air cells: Visualized mastoid air cells are well aerated. Bones/joints: Unremarkable. No acute fracture. Soft tissues: Unremarkable. Other findings: Images are degraded by motion. IMPRESSION: No acute findings and no appreciable change from 12/21/2013 ASSESSMENT: ASPECTS ([place] Stroke Program Early CT Score) is 10. Thank you for allowing us to participate in the care of your patient. Dictated and Authenticated by: Génesis Sharma MD 04/16/2021 9:05 AM Central Time ([place] & [place]) [facility] Final Radiology Report Call: [phone] assistance Online chat: [email or web address] Name: KRZYSZTOF WARD Age: 71Years F Date: 04/16/2021 SSN: -- : [id number] Study: CT CHEST ABDOMEN PELVIS W CONT Requesting Physician: Selena Gardner Images: [id number] Addl Studies: [id number] - CT CHEST W (1) Provided Clinical History: WBC 20k; CRP >36; Confused Contrast: With Contrast Medium: Isovue 300 Contrast Amount: 100 mL Contrast Method: Intravenous (IV) Page 1 of 3 PROCEDURE INFORMATION: Exam: CT Chest With Contrast; Diagnostic Exam date and time: 04/16/2021 10:50 AM Age: 71 years old Clinical indication: Other: Wbc 20k; Crp >36; Confused TECHNIQUE: Imaging protocol: Diagnostic computed tomography of the chest with contrast. Radiation optimization: All CT scans at this facility use at least one of these dose optimization techniques: automated exposure control; mA and/or kV adjustment per patient size (includes targeted exams where dose is matched to clinical indication); or iterative re construction. Contrast material: ISOVUE 300; Contrast volume: 100 ml; Contrast route: INTRAVENOUS (IV); COMPARISON: CT ABDOMEN/PELVIS 04/18/2011 3:04 PM FINDINGS: Lungs: Dependent atelectasis in the posterior lungs, right worse than left. Calcified granuloma right midlung. Pleural spaces: Unremarkable. No pneumothorax. No pleural effusion. Heart: Unremarkable. No cardiomegaly. No pericardial effusion. Aorta: Unremarkable. No aortic aneurysm. Great vessels off aortic arch: Aberrant right subclavian artery. Lymph nodes: Unremarkable. No enlarged lymph nodes. 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 Soft tissues: Unremarkable. Other findings: Degenerative arthritis in the shoulders. KRZYSZTOF WARD | Final Radiology Report Page 2 of 3 IMPRESSION: 1. No acute findings 2. Dependent atelectasis in the lungs. PROCEDURE INFORMATION: Exam: CT Abdomen And Pelvis With Contrast Exam date and time: 04/16/2021 10:50 AM Age: 71 years old Clinical indication: Other: Wbc 20k; Crp >36; Confused TECHNIQUE: Imaging protocol: Computed tomography of the abdomen and pelvis with contrast. Radiation optimization: All CT scans at this facility use at least one of these dose optimization techniques: automated exposure control; mA and/or kV adjustment per patient size (includes targeted exams where dose is matched to clinical indication); or iterative reconstruction. Contrast material: ISOVUE 300; Contrast volume: 100 ml; Contrast route: INTRAVENOUS (IV); COMPARISON: CT ABDOMEN/PELVIS 04/18/2011 3:04 PM FINDINGS: Mediastinal space: Moderate esophageal hiatal hernia. Liver: Diffuse fatty infiltration of the liver. 1 cm benign cyst anterior right hepatic lobe. Fatty infiltration of the liver. Gallbladder and bile ducts: Marked dilatation of the gallbladder with a thickened gallbladder wall and prominent pericholecystic soft tissue stranding and edema. Very large gallstone measuring approximately 5 cm. Findings are consistent with marked cholecystitis. The bile ducts are minimally dilated. Common bile duct measures approximately 8 mm. Pancreas: Normal. No ductal dilation. Spleen: Normal. No splenomegaly. Adrenal glands: Normal. No mass. Kidneys and ureters: Normal. No hydronephrosis. Stomach and bowel: Unremarkable. No obstruction. No mucosal thickening. Appendix: No evidence of appendicitis. Intraperitoneal space: Unremarkable. No free air. No significant fluid collection. Vasculature: Unremarkable. No abdominal aortic aneurysm. Lymph nodes: Unremarkable. No enlarged lymph nodes. Urinary bladder: Unremarkable as visualized. Reproductive: Unremarkable as visualized. Bones/joints: Right total hip arthroplasty. 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 Lumbar curve, convex to the left Soft tissues: Unremarkable. Other findings: Artifact from right FARZAD obscures detail in the pelvis. IMPRESSION: 1. Changes of severe acute cholecystitis with gallbladder wall thickening and pericholecystic edema and soft tissue stranding with a 5 cm gallstone 2. Other incidental findings as described THIS REPORT CONTAINS FINDINGS THAT MAY BE CRITICAL TO PATIENT CARE. The findings were verbally communicated via telephone conference with Selena Gardner at 11:31 AM CDT on 04/16/2021. The findings were acknowledged and understood. Thank you for allowing us to participate in the care of your patient. Dictated and Authenticated by: Génesis Sharma MD 04/16/2021 11:32 AM Central Time ([place] & [place]) - Re-Assessments/Exams Free Text/Narrative Re-Assessment/Exam: 04/16/[address] obtained given NIH of 3. Head CT unremarkable for acute processes. Will obtain chest/abdomen/pelvis CT given WBC 20 and CRP >36; patient has mild grimace to palpation of RUQ. Zosyn started following blood cultures. Case discussed with Cornelio and Susan who are currently full. Case discussed with Dr. Hester at [facility] who kindly accepted patient for transfer. Findings of examination, lab work, imaging, and discussion with Dr. Hester reviewed with patient and hospice patient care secretary. Patient verbalized understanding and agreement with the plan of care. Departure - Departure Time of Disposition: 11:46 Disposition: DC/Tfer to [facility] 02 Condition: Fair Clinical Impression: Cholecystitis, Bile duct, common, cystic dilatation Sepsis Qualifiers: Sepsis type: sepsis due to unspecified organism Sepsis acute organ dysfunction status: without acute organ dysfunction Qualified Code(s): A41.9 - Sepsis, unspecified organism - Discharge Information Forms: ED Department Discharge, Interfacility Transfer EMTALA - My Orders Last 24 Hours: My Active Orders 04/16/21 09:33 CULTURE URINE [RM] Stat 04/16/21 10:13 CULTURE BLOOD [BC] Stat - Assessment/Plan Last 24 Hours: My Active Orders 04/16/21 09:33 CULTURE URINE [RM] Stat 04/16/21 10:13 CULTURE BLOOD [BC] Stat"
--- NOTE | 2021-04-16 09:05 | CT ---
PROCEDURE INFORMATION: Exam: CT Head Without Contrast Exam date and time: 04/16/2021 8:56 AM Age: 71 years old Clinical indication: Altered mental status/memory loss; Confusion or disorientation; Additional info: Stroke protocol TECHNIQUE: Imaging protocol: Computed tomography of the head without contrast. Radiation optimization: All CT scans at this facility use at least one of these dose optimization techniques: automated exposure control; mA and/or kV adjustment per patient size (includes targeted exams where dose is matched to clinical indication); or iterative reconstruction. Other technique: STROKE PROTOCOL was implemented. COMPARISON: CT Head wo Cont 12/21/2013 9:49 AM FINDINGS: Brain: Stable cerebellar atrophy. 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 Stable generalized atrophy. No intra-axial or extra-axial mass or hemorrhage. No midline shift. No sulcal effacement. Cerebral ventricles: No ventriculomegaly. Paranasal sinuses: Visualized sinuses are unremarkable. No fluid levels. Mastoid air cells: Visualized mastoid air cells are well aerated. Bones/joints: Unremarkable. No acute fracture. Soft tissues: Unremarkable. Other findings: Images are degraded by motion. IMPRESSION: No acute findings and no appreciable change from 12/21/2013 ASSESSMENT: ASPECTS ([place] Stroke Program Early CT Score) is 10.
[2021-04-16 09:38] LABS: ANION GAP 13.5 mEq/L (7-13); CHLORIDE,CL 96 mmol/L (98-107); SODIUM,NA 134 mmol/L (136-145)
[2021-04-16] MEDS ORDERED: Acetaminophen 500 MG Tab PO ONE (10:14)
[2021-04-16 10:17] LABS: AMPHETAMINES,URINE NEGATIVE (NEGATIVE); BARBITURATES,URINE NEGATIVE (NEGATIVE); BENZODIAZEPINE,URINE NEGATIVE (NEGATIVE); MDMA (ECSTASY), URINE NEGATIVE (NEGATIVE); METHADONE,URINE NEGATIVE (NEGATIVE); METHAMPHETAMINES,URINE NEGATIVE (NEGATIVE); OPIATES,URINE NEGATIVE (NEGATIVE); OXYCODONE,URINE NEGATIVE (NEGATIVE); PHENCYCLIDINE,URINE NEGATIVE (NEGATIVE); TCA,URINE NEGATIVE (NEGATIVE)
[2021-04-16] MEDS ORDERED: Iopamidol 612 MG/ML 100 ML Bottle IVPUSH ONE (10:24)
[2021-04-16] MEDS ORDERED: Piperacillin/Tazobactam 3.375 GM in Sodium Chloride 0.9% 100 ML IV ONE (10:24)
[2021-04-16] MEDS ORDERED: Sodium Chloride 0.9% 1,000 ML IV ONE (10:25)
--- NOTE | 2021-04-16 11:32 | CT ---
PROCEDURE INFORMATION: Exam: CT Chest With Contrast; Diagnostic Exam date and time: 04/16/2021 10:50 AM Age: 71 years old Clinical indication: Other: Wbc 20k; Crp >36; Confused TECHNIQUE: Imaging protocol: Diagnostic computed tomography of the chest with contrast. Radiation optimization: All CT scans at this facility use at least one of these dose optimization techniques: automated exposure control; mA and/or kV adjustment per patient size (includes targeted exams where dose is matched to clinical indication); or iterative reconstruction. Contrast material: ISOVUE 300; Contrast volume: 100 ml; Contrast route: INTRAVENOUS (IV); COMPARISON: CT ABDOMEN/PELVIS 04/18/2011 3:04 PM FINDINGS: Lungs: Dependent atelectasis in the posterior lungs, right worse than left. Calcified granuloma right midlung. Pleural spaces: Unremarkable. No pneumothorax. No pleural effusion. Heart: Unremarkable. No cardiomegaly. No pericardial effusion. Aorta: Unremarkable. No aortic aneurysm. Great vessels off aortic arch: Aberrant right subclavian artery. Lymph nodes: Unremarkable. No enlarged lymph nodes. 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 Soft tissues: Unremarkable. Other findings: Degenerative arthritis in the shoulders. IMPRESSION: 1. No acute findings 2. Dependent atelectasis in the lungs. PROCEDURE INFORMATION: Exam: CT Abdomen And Pelvis With Contrast Exam date and time: 04/16/2021 10:50 AM Age: 71 years old Clinical indication: Other: Wbc 20k; Crp >36; Confused TECHNIQUE: Imaging protocol: Computed tomography of the abdomen and pelvis with contrast. Radiation optimization: All CT scans at this facility use at least one of these dose optimization techniques: automated exposure control; mA and/or kV adjustment per patient size (includes targeted exams where dose is matched to clinical indication); or iterative reconstruction. Contrast material: ISOVUE 300; Contrast volume: 100 ml; Contrast route: INTRAVENOUS (IV); COMPARISON: CT ABDOMEN/PELVIS 04/18/2011 3:04 PM FINDINGS: Mediastinal space: Moderate esophageal hiatal hernia. Liver: Diffuse fatty infiltration of the liver. 1 cm benign cyst anterior right hepatic lobe. Fatty infiltration of the liver. Gallbladder and bile ducts: Marked dilatation of the gallbladder with a thickened gallbladder wall and prominent pericholecystic soft tissue stranding and edema. Very large gallstone measuring approximately 5 cm. Findings are consistent with marked cholecystitis. The bile ducts are minimally dilated. Common bile duct measures approximately 8 mm. Pancreas: Normal. No ductal dilation. Spleen: Normal. No splenomegaly. Adrenal glands: Normal. No mass. Kidneys and ureters: Normal. No hydronephrosis. Stomach and bowel: Unremarkable. No obstruction. No mucosal thickening. Appendix: No evidence of appendicitis. Intraperitoneal space: Unremarkable. No free air. No significant fluid collection. Vasculature: Unremarkable. No abdominal aortic aneurysm. Lymph nodes: Unremarkable. No enlarged lymph nodes. Urinary bladder: Unremarkable as visualized. Reproductive: Unremarkable as visualized. Bones/joints: Right total hip arthroplasty. 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 Lumbar curve, convex to the left Soft tissues: Unremarkable. Other findings: Artifact from right FARZAD obscures detail in the pelvis. IMPRESSION: 1. Changes of severe acute cholecystitis with gallbladder wall thickening and pericholecystic edema and soft tissue stranding with a 5 cm gallstone 2. Other incidental findings as described THIS REPORT CONTAINS FINDINGS THAT MAY BE CRITICAL TO PATIENT CARE. The findings were verbally communicated via telephone conference with Selena Gardner at 11:31 AM CDT on 04/16/2021. The findings were acknowledged and understood.
== END 2021-04-16 12:11 ==
LOC: DL.ED 08:45
DX: A41.9 Sepsis, unspecified organism (principal); K81.9 Cholecystitis, unspecified; K82.8 Other specified diseases of gallbladder; I25.10 Atherosclerotic heart disease of native coronary artery without angina pectoris; E11.9 Type 2 diabetes mellitus without complications; Z79.84 Long term (current) use of oral hypoglycemic drugs; Z79.899 Other long term (current) drug therapy
CPT/HCPCS: 36415; 70450; 71260; 74177; 80053; 80305; 80307; 81001; 82947; 83605; 83735; 83880; 84484; 85025; 86140; 87040; 87086; 87088; 87186; 93005; 96365; 99285; A9270; J2543; J7030; Q9967

== ENCOUNTER 2023-05-24 09:49 | Emergency (ER) | payer MEDICARE, MEDICAID | END 2023-05-24 12:29 | disposition home or self-care (01) | LOC: DL.ED 09:49 | DX: M25.551 Pain in right hip (principal); M25.562 Pain in left knee; I25.10 Atherosclerotic heart disease of native coronary artery without angina pectoris; E11.9 Type 2 diabetes mellitus without complications; Z79.899 Other long term (current) drug therapy; Z79.84 Long term (current) use of oral hypoglycemic drugs; Z96.652 Presence of left artificial knee joint; W18.30XA Fall on same level, unspecified, initial encounter | CPT/HCPCS: 73562-LT; 93010; 99284 ==

== ENCOUNTER 2024-02-17 12:19 | Observation (INO) | payer MEDICARE, MEDICAID ==
[2024-02-17] MEDS: Iopamidol 755 Mg/ML 100 ML Bottle IVPUSH ONE (11:30)
[2024-02-17 14:18] LABS: BASOPHILS PERCENT AUTO 0.1 % (0.0-1.0); EOSINOPHILS PERCENT AUTO 2.1 % (1.0-3.0); HEMATOCRIT 38.4 % (37.0-47.0); HEMOGLOBIN 12.8 g/dL (12.0-16.0); LYMPHOCYTES PERCENT AUTO 19.9 % (20.5-50.1); MEAN CORPUSCULAR HEMOGLOBIN 32.8 pg (27.0-34.0); MEAN CORPUSCULAR HGB CONC 33.3 g/dL (33.0-35.0); MEAN CORPUSCULAR VOLUME 98.5 fL (80-100); NEUTROPHILS PERCENT AUTO 68.9 % (42.2-75.2); PLATELET COUNT,PLT 260 10^3/uL (150-450); WHITE BLOOD CELL COUNT,WBC 6.7 10^3/uL (5.0-10.0)
[2024-02-17 14:19] LABS: PROTHROMBIN TIME 9.9 SEC (9.0-12.0)
[2024-02-17 14:20] LABS: APPEARANCE,URINE CLEAR (CLEAR); BILIRUBIN,URINE NEGATIVE (NEGATIVE); COLOR,URINE YELLOW (YELLOW); GLUCOSE,URINE NEGATIVE (NEGATIVE); KETONES,URINE NEGATIVE (NEGATIVE); LEUKOCYTE ESTERASE,URINE SMALL (NEGATIVE); NITRITE,URINE NEGATIVE (NEGATIVE); OCCULT BLOOD,URINE NEGATIVE (NEGATIVE); PROTEIN,URINE NEGATIVE (NEGATIVE); UROBILINOGEN,URINE 0.2 mg/dL (0.2-1.0)
[2024-02-17 14:21] LABS: BACTERIA,URINE FEW /HPF (0-FEW/HPF); EPITHELIAL CELLS,URINE MODERATE /HPF (NOT SEEN); MUCUS,URINE FEW /LPF (NOT SEEN); RBC,URINE 0-5 /HPF (0-5)
[2024-02-17 14:23] LABS: A/G RATIO 1.6; ALANINE AMINOTRANSFERASE,ALT 23 U/L (14-59); ALBUMIN 3.7 g/dL (3.4-5.0); ALKALINE PHOSPHATASE 122 U/L (46-116); ANION GAP 12.1 mEq/L (7-13); ASPARTATE AMNIOTRANSFERASE,AST 15 U/L (15-37); BILIRUBIN DIRECT 0.1 mg/dL (0.0-0.2); BILIRUBIN INDIRECT 0.3; BILIRUBIN TOTAL 0.4 mg/dL (0.2-1.0); BLOOD UREA NITROGEN,BUN 18 mg/dL (7-18); CARBON DIOXIDE,CO2 27 mmol/L (21-32); CHLORIDE,CL 105 mmol/L (98-107); CREATININE 0.81 mg/dL (0.55-1.02); ESTIMATED GFR 76 mL/min (>=60); GLUCOSE RANDOM 115 mg/dL (70-99); POTASSIUM,K 4.1 mmol/L (3.5-5.1); SODIUM,NA 140 mmol/L (136-145)
[2024-02-17] MEDS: Aspirin 325 MG Tab.EC PO ONE (15:17)
[2024-02-17] MEDS: Aspirin 81 MG Tab.Chew PO ONE (15:20)
[2024-02-17] MEDS ORDERED: Docusate Sodium 100 MG Cap PO PRN (16:13)
[2024-02-17] MEDS ORDERED: Acetaminophen 325 MG Tab PO PRN (16:13)
[2024-02-17] MEDS ORDERED: Ondansetron 4 MG Tab.DIS PO PRN (16:13)
[2024-02-17] MEDS ORDERED: oxyCODONE 5 MG Tab PO PRN (16:13)
[2024-02-17] MEDS ORDERED: Non-Formulary Medication 1 Each (Diclofenac Sodium [Voltaren] 75 MG Tab.Ec) PO PRN (16:28)
[2024-02-17] MEDS: Gadobenate Dimeglumine 529 MG/ML 20 ML SDV IVPUSH ONE (16:32)
[2024-02-17] MEDS ORDERED: Sodium Chloride 0.9% 10 ML Syringe FLUSH PRN (17:55)
[2024-02-17] MEDS: atorvaSTATin 20 MG Tab PO ONE (18:08)
[2024-02-17] MEDS: Enoxaparin 40 MG/0.4 ML Syringe SUBCUT SCH (18:08)
[2024-02-17 18:39] LABS: CHOLESTEROL HDL 94 mg/dL (40-59); CHOLESTEROL LDL CALCULATED 152 mg/dL (0-100); CHOLESTEROL TOTAL 269 mg/dL (0-199); TRIGLYCERIDES 115 mg/dL (0-149)
[2024-02-17] MEDS: traZODone 50 MG Tab PO SCH (19:49)
[2024-02-17] MEDS: Gabapentin 300 MG Cap PO SCH (19:49)
[2024-02-18] MEDS: Pantoprazole 40 MG Tab.CR PO SCH (05:14)
[2024-02-18] MEDS ORDERED: Aspirin 325 MG Tab.EC PO SCH (08:00)
[2024-02-18] MEDS: Aspirin 325 MG Tab PO SCH (08:14)
[2024-02-18] MEDS: Sertraline 50 MG Tab PO SCH (08:15)
[2024-02-18] MEDS: metFORMIN 500 MG Tab PO SCH (08:15)
== END 2024-02-18 13:40 | disposition home health service (06) ==
LOC: DL.ED 12:19 → DL.MS 15:03
PROVIDERS: ADMIT Internal Medicine; ATTEND Internal Medicine
DX: G45.9 Transient cerebral ischemic attack, unspecified (principal); R53.1 Weakness; I10 Essential (primary) hypertension; F32.A Depression, unspecified; E11.9 Type 2 diabetes mellitus without complications; I25.10 Atherosclerotic heart disease of native coronary artery without angina pectoris; Z79.82 Long term (current) use of aspirin; Z79.84 Long term (current) use of oral hypoglycemic drugs; Z79.899 Other long term (current) drug therapy
CPT/HCPCS: 36415; 70450; 70496; 70498; 70551; 72170; 73030-RT; 80048; 80061; 80076; 81001; 82947; 84484; 85025; 85610; 93010; 93308; 96372; 97165-GO; 99222; 99285; A9270-GY; G0378; J1650; Q9967

== ENCOUNTER 2024-03-13 03:50 | Emergency (ER) | payer MEDICARE, MEDICAID ==
[2024-03-13] MEDS: Lidocaine 1% with EPINEPHrine 1:100,000 20 ML MDV INJECT ONE (05:00)
[2024-03-13] MEDS: Bacitracin Oint 1 GM U/D Packet TOP ONE (05:00)
[2024-03-13] MEDS: Diphtheria,Pertussis(Acell),Tetanus Vaccine 0.5 ML Syringe IM ONE (06:19)
[2024-03-13] MEDS: ceFAZolin 2 GM Vial IVPUSH ONE (06:19)
== END 2024-03-13 07:32 | disposition home or self-care (01) ==
LOC: DL.ED 03:50
DX: S81.012A Laceration without foreign body, left knee, initial encounter (principal); I25.10 Atherosclerotic heart disease of native coronary artery without angina pectoris; K21.9 Gastro-esophageal reflux disease without esophagitis; E11.9 Type 2 diabetes mellitus without complications; Z90.49 Acquired absence of other specified parts of digestive tract; Z79.899 Other long term (current) drug therapy; Z79.82 Long term (current) use of aspirin; Z79.84 Long term (current) use of oral hypoglycemic drugs; Z23 Encounter for immunization; W19.XXXA Unspecified fall, initial encounter
CPT/HCPCS: 12004; 73564; 90471; 90715; 96374; 99283; A9270; J0690; J3490

== ENCOUNTER 2024-06-29 08:09 | Emergency (ER) | payer MEDICARE, MEDICAID ==
[2024-06-29] MEDS ORDERED: Ketorolac 30 MG/ML SDV IVPUSH ONE (08:10)
[2024-06-29] MEDS ORDERED: Ondansetron 4 MG/2 ML SDV IV ONE (08:10)
[2024-06-29] MEDS ORDERED: Lidocaine 1% 30 ML SDV NERVRT ONE (08:10)
[2024-06-29] MEDS ORDERED: Ropivacaine 100 ML EPIDUR ONE (08:10)
[2024-06-29] MEDS ORDERED: Propofol 1,000 MG/100 ML SDV IV ONE (08:10)
[2024-06-29] MEDS: Morphine 2 MG/ML SYRINGE IVPUSH ONE (08:42)
[2024-06-29] MEDS: Ondansetron 4 MG/2 ML SDV IVPUSH ONE (08:42)
[2024-06-29 08:43] LABS: BASOPHILS PERCENT AUTO 0.2 % (0.0-1.0); EOSINOPHILS PERCENT AUTO 1.5 % (1.0-3.0); HEMATOCRIT 38.8 % (37.0-47.0); HEMOGLOBIN 12.7 g/dL (12.0-16.0); LYMPHOCYTES PERCENT AUTO 15.4 % (20.5-50.1); MEAN CORPUSCULAR HEMOGLOBIN 32.2 pg (27.0-34.0); MEAN CORPUSCULAR HGB CONC 32.7 g/dL (33.0-35.0); MEAN CORPUSCULAR VOLUME 98.5 fL (80-100); MONOCYTES PERCENT AUTO 8.6 % (2-8); NEUTROPHILS PERCENT AUTO 74.3 % (42.2-75.2); PLATELET COUNT,PLT 257 10^3/uL (150-450); RED BLOOD CELL COUNT 3.94 10^6/uL (4.2-5.4); WHITE BLOOD CELL COUNT,WBC 8.2 10^3/uL (5.0-10.0)
[2024-06-29 09:04] LABS: A/G RATIO 1.4; ALBUMIN 3.7 g/dL (3.4-5.0); ANION GAP 11.4 mEq/L (7-13); BILIRUBIN TOTAL 0.3 mg/dL (0.2-1.0); BUN/CREATININE RATIO 12.3 (No establ ref range); CALCIUM 9.4 mg/dL (8.5-10.1); CREATININE 0.81 mg/dL (0.55-1.02); EST CRCL DRUG DOSING (CG) 46.73 mL/min; POTASSIUM,K 3.4 mmol/L (3.5-5.1); PROTEIN TOTAL,TP 6.3 g/dL (6.4-8.2)
[2024-06-29] MEDS: Potassium Chloride 10 MEQ Tab.ER PO ONE (10:03)
== END 2024-06-29 10:40 ==
LOC: DL.ED 08:09
DX: S43.014A Anterior dislocation of right humerus, initial encounter (principal); I25.10 Atherosclerotic heart disease of native coronary artery without angina pectoris; K21.9 Gastro-esophageal reflux disease without esophagitis; E11.9 Type 2 diabetes mellitus without complications; Z90.49 Acquired absence of other specified parts of digestive tract; Z86.73 Personal history of transient ischemic attack (TIA), and cerebral infarction without residual deficits; Z79.82 Long term (current) use of aspirin; Z79.84 Long term (current) use of oral hypoglycemic drugs; Z79.899 Other long term (current) drug therapy; W01.0XXA Fall on same level from slipping, tripping and stumbling without subsequent striking against object, initial encounter
CPT/HCPCS: 23650; 36415; 70450; 71045; 72125; 73020-RT; 73030-RT; 73060-RT; 73090-RT; 80053; 82947; 85025; 93005; 96374; 96375; 99285-25; J2270; J2405

== ENCOUNTER 2024-06-30 11:42 | Emergency (ER) | payer MEDICAID, MEDICARE ==
[2024-06-30 12:04] LABS: BASOPHILS PERCENT AUTO 0.3 % (0.0-1.0); EOSINOPHILS PERCENT AUTO 0.3 % (1.0-3.0); HEMATOCRIT 32.5 % (37.0-47.0); HEMOGLOBIN 10.6 g/dL (12.0-16.0); LYMPHOCYTES PERCENT AUTO 15.5 % (20.5-50.1); MEAN CORPUSCULAR HEMOGLOBIN 32.5 pg (27.0-34.0); MEAN CORPUSCULAR HGB CONC 32.6 g/dL (33.0-35.0); MEAN CORPUSCULAR VOLUME 99.7 fL (80-100); NEUTROPHILS PERCENT AUTO 71.9 % (42.2-75.2); PLATELET COUNT,PLT 215 10^3/uL (150-450); RED BLOOD CELL COUNT 3.26 10^6/uL (4.2-5.4); WHITE BLOOD CELL COUNT,WBC 6.6 10^3/uL (5.0-10.0)
[2024-06-30] MEDS: Acetaminophen 325 MG Tab PO ONE (12:16)
[2024-06-30 12:24] LABS: ALBUMIN 3.3 g/dL (3.4-5.0); ANION GAP 13.6 mEq/L (7-13); BILIRUBIN TOTAL 0.7 mg/dL (0.2-1.0); CALCIUM 9.5 mg/dL (8.5-10.1); CREATININE 0.89 mg/dL (0.55-1.02); EST CRCL DRUG DOSING (CG) 42.53 mL/min; MAGNESIUM 1.7 mg/dL (1.8-2.4); POTASSIUM,K 3.6 mmol/L (3.5-5.1); PROTEIN TOTAL,TP 5.8 g/dL (6.4-8.2)
[2024-06-30 12:27] LABS: A/G RATIO 1.32
[2024-06-30 12:41] LABS: PROTHROMBIN TIME 10.2 SEC (9.0-12.0)
[2024-06-30] MEDS: Metoprolol Tartrate 25 MG Tab PO ONE (12:46)
[2024-06-30] MEDS: atorvaSTATin 20 MG Tab PO ONE (12:46)
[2024-06-30] MEDS: Aspirin 81 MG Tab.Chew PO ONE (13:17)
[2024-06-30] MEDS: Heparin Sodium 5,000 Units/ML Vial IVPUSH ONE (13:20)
[2024-06-30] MEDS: Heparin Sodium/0.45% NaCl 25,000 UNITS/500 ML BAG IV SCH (13:24)
== END 2024-06-30 13:50 ==
LOC: DL.ED 11:42
DX: I21.4 Non-ST elevation (NSTEMI) myocardial infarction (principal); M25.511 Pain in right shoulder; M54.50 Low back pain, unspecified; R94.31 Abnormal electrocardiogram [ECG] [EKG]; I25.10 Atherosclerotic heart disease of native coronary artery without angina pectoris; K21.9 Gastro-esophageal reflux disease without esophagitis; E11.9 Type 2 diabetes mellitus without complications; Z79.82 Long term (current) use of aspirin; Z79.84 Long term (current) use of oral hypoglycemic drugs; Z79.899 Other long term (current) drug therapy; Z90.49 Acquired absence of other specified parts of digestive tract
CPT/HCPCS: 36415; 70450; 71045; 72131; 80053; 83735; 84484; 85025; 85610; 93005; 93010; 96365; 99285; A9270; J1644

== ENCOUNTER 2024-07-10 07:56 | Emergency (ER) | payer MEDICARE, MEDICAID ==
[2024-07-10 08:29] LABS: BASOPHILS PERCENT AUTO 0.3 % (0.0-1.0); EOSINOPHILS PERCENT AUTO 1.5 % (1.0-3.0); HEMATOCRIT 36.8 % (37.0-47.0); LYMPHOCYTES PERCENT AUTO 22.9 % (20.5-50.1); MEAN CORPUSCULAR HEMOGLOBIN 32.5 pg (27.0-34.0); MEAN CORPUSCULAR HGB CONC 32.6 g/dL (33.0-35.0); MEAN CORPUSCULAR VOLUME 99.7 fL (80-100); MONOCYTES PERCENT AUTO 9.6 % (2-8); NEUTROPHILS PERCENT AUTO 65.7 % (42.2-75.2); PLATELET COUNT,PLT 440 10^3/uL (150-450); RED BLOOD CELL COUNT 3.69 10^6/uL (4.2-5.4)
[2024-07-10] MEDS: Sodium Chloride 0.9% 10 ML Syringe FLUSH PRN (08:36)
[2024-07-10 08:53] LABS: A/G RATIO 1.3; ALBUMIN 3.8 g/dL (3.4-5.0); BILIRUBIN TOTAL 1.2 mg/dL (0.2-1.0); BUN/CREATININE RATIO 13.4 (No establ ref range); CALCIUM 9.7 mg/dL (8.5-10.1); CREATININE 0.67 mg/dL (0.55-1.02); EST CRCL DRUG DOSING (CG) 51.31 mL/min; MAGNESIUM 1.5 mg/dL (1.8-2.4); PROTEIN TOTAL,TP 6.7 g/dL (6.4-8.2)
[2024-07-10 08:55] LABS: PROTHROMBIN TIME 10.4 SEC (9.0-12.0); PTT,PARTIAL THROMBOPLSTIN TIME 22.6 SEC (22.0-34.0)
[2024-07-10 10:27] LABS: APPEARANCE,URINE CLEAR (CLEAR); BILIRUBIN,URINE SMALL (NEGATIVE); COLOR,URINE YELLOW (YELLOW); GLUCOSE,URINE NEGATIVE (NEGATIVE); KETONES,URINE 15 (NEGATIVE); LEUKOCYTE ESTERASE,URINE SMALL (NEGATIVE); NITRITE,URINE NEGATIVE (NEGATIVE); OCCULT BLOOD,URINE NEGATIVE (NEGATIVE); PH,URINE 8.5 (5.0-9.0); PROTEIN,URINE NEGATIVE (NEGATIVE)
[2024-07-10 10:30] LABS: BACTERIA,URINE RARE /HPF (0-FEW/HPF); EPITHELIAL CELLS,URINE RARE /HPF (NOT SEEN); RBC,URINE NOT SEEN /HPF (0-5); WBC,URINE 0-5 /HPF (0-5/HPF)
[2024-07-10] MEDS: Iopamidol 755 Mg/ML 100 ML Bottle IVPUSH ONE (10:34)
[2024-07-10] MEDS: Magnesium Sulfate/Water Premix 2 GM in Premix Bag 1 BAG IV ONE (11:23)
[2024-07-10] MEDS: cefTRIAXone 1 GM in Sodium Chloride 0.9% 100 ML IV ONE (11:31)
[2024-07-10] MEDS: cefTRIAXone 1 GM Vial IVPUSH ONE (11:37)
[2024-07-10] MEDS: Heparin Sodium/0.45% NaCl 25,000 UNITS/500 ML BAG IV SCH (12:03)
== END 2024-07-10 12:35 ==
LOC: DL.ED 07:56
DX: I26.99 Other pulmonary embolism without acute cor pulmonale (principal); I25.10 Atherosclerotic heart disease of native coronary artery without angina pectoris; K21.9 Gastro-esophageal reflux disease without esophagitis; E11.9 Type 2 diabetes mellitus without complications; Z86.73 Personal history of transient ischemic attack (TIA), and cerebral infarction without residual deficits; Z90.49 Acquired absence of other specified parts of digestive tract; Z79.82 Long term (current) use of aspirin; Z79.84 Long term (current) use of oral hypoglycemic drugs; Z79.899 Other long term (current) drug therapy
CPT/HCPCS: 36415; 71045; 71275; 73030-RT; 73060-RT; 80053; 81001; 83735; 83880; 84484; 85025; 85379; 85610; 85730; 87086; 93005; 96365; 96368; 96375; 99285; 99285-25; J0696; J1644; J3475; J3490; Q9967